=== PATIENT | male | born 1965 | race Caucasian/White ===

== ENCOUNTER 2022-04-07 07:51 | Day surgery (SDC) | payer BC ==
[2022-04-07] MEDS ORDERED: Propofol 200 MG/20 ML SDV ONE ×3 (07:54→10:03)
[2022-04-07] MEDS ORDERED: Midazolam 1 MG/ML 2 ML SDV ONE (07:54)
[2022-04-07] MEDS ORDERED: fentaNYL 50 MCG/ML SDV ONE (07:54)
[2022-04-07] MEDS ORDERED: Lactated Ringers 1,000 ML IV SCH ×2 (08:30→08:45)
== END 2022-04-07 11:26 | disposition home or self-care (01) ==
LOC: JP.SDS 07:51
PROVIDERS: ATTEND Student in an Organized Health Care Education/Training Program
DX: D12.2 Benign neoplasm of ascending colon (principal); D12.4 Benign neoplasm of descending colon; D12.5 Benign neoplasm of sigmoid colon; D12.3 Benign neoplasm of transverse colon; I10 Essential (primary) hypertension; E11.9 Type 2 diabetes mellitus without complications; E78.00 Pure hypercholesterolemia, unspecified; Z79.899 Other long term (current) drug therapy
CPT/HCPCS: 45385; J2250; J2704; J3010; J7120

== ENCOUNTER 2023-07-29 06:57 | Day surgery (SDC) | payer BC ==
[2023-07-29] MEDS: Sodium Chloride 0.9% 1,000 ML IV SCH (07:31)
[2023-07-29] MEDS ORDERED: fentaNYL 50 MCG/ML SDV ONE (07:35)
[2023-07-29] MEDS ORDERED: Midazolam 1 MG/ML 2 ML SDV ONE (07:35)
[2023-07-29] MEDS ORDERED: Propofol 200 MG/20 ML SDV ONE (07:35)
== END 2023-07-29 10:01 | disposition home or self-care (01) ==
LOC: JP.SDS 06:57
PROVIDERS: ATTEND Surgery
DX: Z12.11 Encounter for screening for malignant neoplasm of colon (principal); D12.3 Benign neoplasm of transverse colon; K57.30 Diverticulosis of large intestine without perforation or abscess without bleeding; K21.9 Gastro-esophageal reflux disease without esophagitis; E11.9 Type 2 diabetes mellitus without complications; Z86.010 Personal history of colon polyps
CPT/HCPCS: 45380; 88305; J2250; J2704; J3010; J7030